=== PATIENT | female | born 1970 | race Caucasian/White ===

== ENCOUNTER → 2018-08-21 | Outpatient (CLI) | payer BC ==
--- NOTE | 2018-08-21 10:52 | MM ---
Reason for exam: follow-up at short interval from prior study. Last mammogram was performed 7 years and 3 months ago. History: Family history of breast cancer in paternal grandmother and breast cancer in paternal aunt at age 60. Took hormonal contraceptives for 18 years beginning at age 19. Physical Findings: Nurse did not find any significant physical abnormalities on exam. MG 3D Diag Mammo W/Cad LT CC and MLO view(s) were taken of the left breast. Prior study comparison: February 15, 2018, mammogram. May 18, 2011, [facility] DIGITAL LEFT BREAST MAMMOGRAM w/CAD. May 13, 2011, bilateral digital screening mammo w/CAD. The breast tissue is heterogeneously dense. This may lower the sensitivity of mammography. The superior left breast asymmetry at middle depth appears as fibroglandular tissue on 3D imaging. These results were verbally communicated with the patient and result sheet given to the patient on 08/21/18. ASSESSMENT: Benign, BI-RAD 2 RECOMMENDATION: Routine screening mammogram of both breasts in 5 months. Back on schedule for January 2019.
== END | disposition home or self-care (01) ==
LOC: RADMAMWWP 09:20
PROVIDERS: ATTEND Family Medicine
DX: R92.8 Other abnormal and inconclusive findings on diagnostic imaging of breast (principal)
CPT/HCPCS: 77061; 77065

== ENCOUNTER → 2019-02-26 | Outpatient (CLI) | payer BC ==
--- NOTE | 2019-02-28 10:04 | MM ---
Reason for exam: screening (asymptomatic). Last mammogram was performed 6 months ago. History: Family history of breast cancer in paternal grandmother and breast cancer in paternal aunt at age 60. Took hormonal contraceptives for 18 years beginning at age 19. Physical Findings: A clinical breast exam by your physician is recommended on an annual basis and results should be correlated with mammographic findings. MG Screening Mammo w CAD Bilateral CC and MLO view(s) were taken. Prior study comparison: August 21, 2018, left breast MG 3d diag mammo w/cad LT. February 15, 2018, mammogram. The breast tissue is extremely dense which could obscure a lesion on mammography. No significant changes when compared with prior studies. ASSESSMENT: Benign, BI-RAD 2 RECOMMENDATION: Routine screening mammogram of both breasts in 1 year.
== END | disposition home or self-care (01) ==
LOC: RADMAMWWP 16:57
PROVIDERS: ATTEND Family Medicine
DX: Z12.31 Encounter for screening mammogram for malignant neoplasm of breast (principal)
CPT/HCPCS: 77067

== ENCOUNTER → 2020-06-11 | Outpatient (CLI) | payer BC ==
--- NOTE | 2020-06-15 08:46 | MM ---
Reason for exam: screening (asymptomatic). Last mammogram was performed 1 year and 3 months ago. History: Family history of breast cancer in paternal grandmother and breast cancer in paternal aunt at age 60. Took hormonal contraceptives for 18 years beginning at age 19. Physical Findings: A clinical breast exam by your physician is recommended on an annual basis and results should be correlated with mammographic findings. MG 3D Screening Mammo W/Cad Bilateral CC and MLO view(s) were taken. Prior study comparison: February 26, 2019, bilateral MG screening mammo w CAD. August 21, 2018, left breast MG 3d diag mammo w/cad LT. The breast tissue is heterogeneously dense. This may lower the sensitivity of mammography. Benign appearing calcifications in the left breast. No significant changes when compared with prior studies. ASSESSMENT: Benign, BI-RAD 2 RECOMMENDATION: Routine screening mammogram of both breasts in 1 year.
== END | disposition home or self-care (01) ==
LOC: RADMAMWWP 13:52
PROVIDERS: ATTEND Family Medicine
DX: Z12.31 Encounter for screening mammogram for malignant neoplasm of breast (principal)
CPT/HCPCS: 77063; 77067

== ENCOUNTER → 2021-07-22 | Outpatient (CLI) | payer OTHER ==
--- NOTE | 2021-07-23 11:36 | MM ---
Reason for exam: screening (asymptomatic). Last mammogram was performed 1 year and 1 month ago. History: Family history of breast cancer in paternal grandmother and breast cancer in paternal aunt at age 60. Took hormonal contraceptives for 18 years beginning at age 19. Physical Findings: A clinical breast exam by your physician is recommended on an annual basis and results should be correlated with mammographic findings. MG 3D Screening Mammo W/Cad Bilateral CC and MLO view(s) were taken. Prior study comparison: June 11, 2020, bilateral MG 3d screening mammo w/cad. February 26, 2019, bilateral MG screening mammo w CAD. The breast tissue is heterogeneously dense. This may lower the sensitivity of mammography. There is no discrete abnormality. ASSESSMENT: Negative, BI-RAD 1 RECOMMENDATION: Routine screening mammogram of both breasts in 1 year.
== END | disposition home or self-care (01) ==
LOC: RADMAMWWP 12:34
PROVIDERS: ATTEND Family Medicine
DX: Z12.31 Encounter for screening mammogram for malignant neoplasm of breast (principal)
CPT/HCPCS: 77063; 77067

== ENCOUNTER → 2022-08-29 | Outpatient (CLI) | payer BC ==
--- NOTE | 2022-08-30 08:44 | MM ---
Reason for Exam: Screening (asymptomatic). Last mammogram was performed 1 year(s) and 1 month(s) ago. Patient History: Menarche at age 14. First Full-Term at age 26. Premenopausal. Hormonal Contraceptives, starting at age 19 for 18 years. Paternal grandmother had breast cancer. Paternal aunt had breast cancer, age 60. Paternal aunt had breast cancer. Risk Values: Madalyn 5 year model risk: 1.1%. NCI Lifetime model risk: 9.7%. Prior Study Comparison: 02/26/2019 Bilateral Screening Mammogram, [facility]. 06/11/2020 Bilateral Screening Mammogram, [facility]. 07/22/2021 Bilateral Screening Mammogram, [facility]. Tissue Density: The breast tissue is heterogeneously dense. This may lower the sensitivity of mammography. Findings: Analyzed By CAD. There is no suspicious group of microcalcifications or new suspicious mass in either breast. Stable benign-appearing calcifications in the left breast. No significant change from prior exams. Overall Assessment: Benign, BI-RAD 2 Management: Screening Mammogram of both breasts in 1 year. A clinical breast exam by your physician is recommended on an annual basis and results should be correlated with mammographic findings. Electronically signed and approved by: Kush Jay D.O.
== END | disposition home or self-care (01) ==
LOC: RADMAMWWP 11:20
PROVIDERS: ATTEND Family Medicine
DX: Z12.31 Encounter for screening mammogram for malignant neoplasm of breast (principal); Z80.3 Family history of malignant neoplasm of breast
CPT/HCPCS: 77063; 77067

== ENCOUNTER → 2023-09-05 | Outpatient (CLI) | payer BC ==
[2023-09-06 02:25] LABS: Basophils # (A) 0.03 X 10*3/uL (0.00-0.10); Basophils % (A) 0.5 %; Eosinophils # (A) 0.06 X 10*3/uL (0.04-0.35); Eosinophils % (A) 1.1 %; HGB 13.3 g/dL (12.0-15.0); Lymphocytes # (A) 1.34 X 10*3/uL (0.90-5.00); Lymphocytes % (A) 23.8 %; MCH 31.6 pg (27.0-32.0); MCHC 33.3 g/dL (32.0-37.0); Mean Platelet Volume 9.8 FL (9.5-12.2); Monocytes # (A) 0.36 X 10*3/uL (0.20-1.00); Monocytes % (A) 6.4 %; NRBC Per 100 WBC 0 X 10*3/uL (0.00-0.01); Neutrophils # (A) 3.81 X 10*3/uL (1.80-7.70); Neutrophils % (A) 67.8 %; Platelet Count 305 X 10*3/uL (140-440); RBC 4.21 X 10*6/uL (4.10-5.20); RDW 12.7 % (11.5-14.5); WBC 5.62 X 10*3/uL (4.50-10.00)
== END | disposition home or self-care (01) ==
LOC: LABPAT 16:10
PROVIDERS: ATTEND Obstetrics & Gynecology
DX: Z01.812 Encounter for preprocedural laboratory examination (principal); N92.1 Excessive and frequent menstruation with irregular cycle
CPT/HCPCS: 36415; 85025

== ENCOUNTER → 2023-09-12 | Outpatient (CLI) | payer BC ==
--- NOTE | 2023-09-17 14:28 | MM ---
Reason for Exam: Screening (asymptomatic). Last mammogram was performed 1 year(s) and 1 month(s) ago. Patient History: Menarche at age 14. First Full-Term at age 26. Premenopausal. Hormonal Contraceptives, starting at age 19 for 18 years. Paternal grandmother had breast cancer. Paternal aunt had breast cancer, age 60. Paternal aunt had breast cancer. Last menstrual period: 08/23/2023 Risk Values: Madalyn 5 year model risk: 1.2%. NCI Lifetime model risk: 9.6%. Prior Study Comparison: 06/11/2020 Bilateral Screening Mammogram, [facility]. 07/22/2021 Bilateral Screening Mammogram, [facility]. 08/29/2022 Bilateral MG 3D screening mammo w/cad, [facility]. Tissue Density: The breast tissue is heterogeneously dense. This may lower the sensitivity of mammography. Findings: Analyzed By CAD. The pattern is symmetrical. There are calcifications within the left breast. These are increasing from comparison. Additional workup with medication views are recommended. Overall Assessment: Incomplete: need additional imaging evaluation, BI-RAD 0 Management: Diagnostic Mammogram of the left breast. A negative mammogram report should not preclude additional follow up of suspicious palpable abnormalities. Patient should continue monthly self breast exam. A clinical breast exam by your physician is recommended on an annual basis and results should be correlated with mammographic findings. Electronically signed and approved by: Riaz Bobo D.O. Radiologis
== END | disposition home or self-care (01) ==
LOC: RADMAMWWP 14:44
PROVIDERS: ATTEND Family Medicine
DX: Z12.31 Encounter for screening mammogram for malignant neoplasm of breast (principal); Z80.3 Family history of malignant neoplasm of breast
CPT/HCPCS: 77063; 77067

== ENCOUNTER → 2023-09-20 | Outpatient (CLI) | payer BC, OTHER ==
--- NOTE | 2023-09-20 15:06 | MM ---
Reason for Exam: Additional evaluation requested from abnormal screening. Last screening mammogram was performed less than 1 month ago. Patient History: Menarche at age 14. First Full-Term at age 26. Premenopausal. Hormonal Contraceptives, starting at age 19 for 18 years. Paternal grandmother had breast cancer. Paternal aunt had breast cancer, age 60. Paternal aunt had breast cancer. Risk Values: Madalyn 5 year model risk: 1.2%. NCI Lifetime model risk: 9.6%. Prior Study Comparison: 07/22/2021 Bilateral Screening Mammogram, [facility]. 08/29/2022 Bilateral MG 3D screening mammo w/cad, [facility]. 09/12/2023 Bilateral MG 3D screening mammo w/cad, [facility]. Tissue Density: Left: The breast tissue is heterogeneously dense. This may lower the sensitivity of mammography. Findings: Analyzed By CAD. Grouped heterogeneous calcifications upper outer quadrant central left breast are indeterminate. One or 2 of these calcifications may layer and could reflect milk of calcium. The others do not clearly layer. Tissue sampling is recommended. Overall Assessment: Suspicious, BI-RAD 4 Management: Stereotactic Core Biopsy of the left breast. Results were given to the patient verbally at the time of exam. Electronically signed and approved by: Willis Pitt M.D. Radiologist
== END | disposition home or self-care (01) ==
LOC: RADMAMWWP 14:30
PROVIDERS: ATTEND Family Medicine
DX: R92.332 Mammographic heterogeneous density, left breast (principal); Z80.3 Family history of malignant neoplasm of breast
CPT/HCPCS: 77061; 77065

== ENCOUNTER → 2023-10-12 | Outpatient (CLI) | payer BC, OTHER ==
[2023-10-12 09:28] VITALS: RESP 16
== END ==
LOC: WWCWWP 07:16
PROVIDERS: ATTEND Surgery
DX: R92.8 Other abnormal and inconclusive findings on diagnostic imaging of breast (principal); F41.9 Anxiety disorder, unspecified; K91.0 Vomiting following gastrointestinal surgery; Z87.891 Personal history of nicotine dependence

== ENCOUNTER → 2023-10-12 | Day surgery (SDC) | payer BC, OTHER ==
--- NOTE | 2023-10-12 08:12 | P.GSHP ---
History of Present Illness H&P Date: 10/12/23 Chief Complaint: Microcalcifications of concern left breast Tootie is a 53-year-old female seen in consultation for Dr. Vital regarding an abnormal left breast mammogram. She underwent a bilateral mammogram on 09-12-2023. This revealed some calcifications of concern in the left breast and a diagnostic mammogram was recommended. This was performed on 09-20-2023. This revealed grouped heterogeneous calcifications upper outer quadrant for which tissue sampling was recommended. This was personally reviewed with Dr. Beavers from radiology. The patient does not have any lumps masses or nodules of concern in either breast. She has not had any surgery on her breast in the past. She has not had any trauma or infection in the breast. She is not complaining of any nipple discharge or skin changes. Caffeine: occasional nicotine: none chocolate: occasional BCP: used for about 35 years hormones: none Family History: maternal grandfather: colon cancer materna grandmother: colon cancer 2 paternal aunt: breast both from this; both diagnosed post menopausal paternal grandmother: breast cancer at 100 Hormonal History: menarch: 14 , breast fed: no, age at first : 26 menopause: ablation and tubaligation 2 weeks ago hormone: none, but used BCP Surgical History: tubaligation and ablation rohan lobato Medical History: none Social History: nicotine: stopped at 26, smoked occasional last year alcohol: occasional, monthly drugs: none - Constitutional Constitutional: Denies chills, Denies fever - EENT Eyes: denies blurred vision, denies pain Ears: deny: decreased hearing, tinnitus Ears, nose, mouth and throat: Denies headache, Denies sore throat - Breasts Breasts: bilateral: as per HPI - Cardiovascular Cardiovascular: Denies chest pain, Denies shortness of breath - Respiratory Respiratory: Denies cough, Denies 7 - Gastrointestinal Gastrointestinal: Denies abdominal pain, Denies diarrhea, Denies nausea, Denies vomiting - Genitourinary (Female) Genitourinary: Denies dysuria, Denies hematuria - Menstruation Menstruation: Reports as per HPI - Musculoskeletal Musculoskeletal: Denies myalgias - Integumentary Integumentary: Denies pruritus, Denies rash - Neurological Neurological: Denies numbness, Denies weakness - Psychiatric Psychiatric: Reports anxiety, Denies depression - Endocrine Endocrine: Denies fatigue, Denies weight change - Hematologic/Lymphatic Comment: none - Allergic/Immunologic Allergic/Immunologic: Reports seasonal allergies Past Medical History Additional Past Medical History / Comment(s): IBS? History of Any Multi-Drug Resistant Organisms: None Reported Past Surgical History: Tubal Ligation, Uterine Ablation Additional Past Surgical History / Comment(s): Abdominoplasty 1999 Past Anesthesia/Blood Transfusion Reactions: Postoperative Nausea & Vomiting (PONV) Past Psychological History: Anxiety Smoking Status: Former smoker Past Alcohol Use History: Occasional Additional Past Alcohol Use History / Comment(s): quit smoking 1996 Past Drug Use History: None Reported Medications and Allergies Home Medications Medication Instructions Recorded Confirmed Type Cetirizine HCl [Zyrtec] 10 mg PO DAILY 09/21/23 10/12/23 History Escitalopram [Lexapro] 20 mg PO DAILY 09/21/23 10/12/23 History Ferrous Sulfate [Feosol] 325 mg PO DAILY 09/21/23 10/12/23 History sulfaSALAzine [Azulfidine] 1,000 mg PO BID 09/21/23 10/12/23 History Allergies Allergy/AdvReac Type Severity Reaction Status Date / Time No Known Allergies Allergy Verified 10/12/23 07:29 Surgical - Exam Vital Signs Temp Pulse Resp BP 97.6 F 81 16 114/81 10/12/23 07:37 10/12/23 07:37 10/12/23 07:37 10/12/23 07:37 - General no distress - Eyes normal ocular movement - Neck trachea midline - Respiratory normal respiratory effort, clear to auscultation - Cardiovascular Rhythm: regular Heart Sounds: normal: S1, S2 - Abdomen Abdomen: soft, non tender, no guarding, no rigid, no rebound - Integumentary normal turgor - Neurologic no disoriented, no combative - Musculoskeletal normal gait - Psychiatric oriented to time, oriented to person, oriented to place, speech is normal, memory intact Breast Exam: BRA: 32B Inspection: Bilateral grade 2 ptosis Palpation: Right breast: Multi positional exam no dominant masses or nodules of concern Right axilla: Shotty adenopathy Left breast: Multi positional exam no dominant masses or nodules of concern Left axilla: No adenopathy of concern Results Mammogram personally reviewed with Dr. Beavers, calcifications noted in the upper outer quadrant left breast for which stereotactic core biopsy has been recommended Assessment and Plan Assessment: Impression: Microcalcifications of concern left breast Plan: Stereotactic core biopsy left breast Risk and benefits of the procedure discussed with the patient. Risk include but are not limited to bleeding, infection, reaction to the anesthetic. If the tissue acquisition were felt to be discordant further tissue acquisition may be necessary. The patient understands and wishes to proceed. CC: Dr. Acevedo
[2023-10-12 08:21] VITALS: BP 114/81; PULSE 81; RESP 16; TEMP 97.6
--- NOTE | 2023-10-13 08:28 | MM ---
Date of Procedure: 10/12/23 Preoperative Diagnosis: Microcalcifications of concern left breast upper outer quadrant Postoperative Diagnosis: Same Procedure(s) Performed: Stereotactic core biopsy left breast Anesthesia: local Surgeon: Emily Billings Pathology: other (Breast tissue/radiograph of specimen reveals microcalcifications of concern) Condition: stable Disposition: same day Indications for Procedure: Microcalcifications of concern left breast Operative Findings: Radiograph of specimen reveals microcalcifications of concern Description of Procedure: The patient is a 53-year-old white female who on a routine screening mammogram was noted to have microcalcifications of concern in the left breast in the upper outer quadrant region. The films were reviewed personally with radiology and the recommendation was for stereotactic core biopsy. Physical examination did not reveal any dominant masses or nodules of concern in either breast nor any axillary adenopathy of concern. Following discussion of the procedure informed consent was obtained from the patient. Risk and benefits of the procedure were discussed. Risk include but are not limited to bleeding, infection, reaction to the anesthetic. If tissue acquisition were insufficient then further tissue may be necessary to be obtained. The patient understood and wished to proceed. The patient was taken to the stereotactic core biopsy room. She was positioned in the upper right chair. A marine steamfitter film was obtained. Concern was identified. The area was targeted. The breast was prepped using chlorhexidine. 20 cc of 1% lidocaine were used to anesthetize the area of concern. A 12-gauge petite vacuum-assisted core rotating biopsy needle was driven to the correct coordinates. A prefire film was obtained. The needle appeared to be in the correct location. The needle was fired. A post fire film was obtained. The needle appeared to be in the correct location. 24 core biopsy specimens were obtained. Radiograph of the specimen revealed the microcalcifications of concern. A radiographic marking clip was left behind. The clip was noted to be in the correct location. The patient tolerated the procedure in stable condition. She will follow-up with Dr. Aguilar in 1 week. The specimen was sent to pathology. [facility]
== END ==
LOC: RADMAMWWP 07:17
PROVIDERS: ATTEND Surgery
DX: N60.12 Diffuse cystic mastopathy of left breast (principal); F41.9 Anxiety disorder, unspecified; N60.82 Other benign mammary dysplasias of left breast; N64.89 Other specified disorders of breast; Z79.899 Other long term (current) drug therapy
CPT/HCPCS: 88305; 19081; A4648; J2001

== ENCOUNTER → 2023-10-20 | Outpatient (CLI) | payer BC, OTHER ==
[2023-10-20 14:36] VITALS: BP 136/83; PULSE 80; RESP 15; TEMP 98.7
--- NOTE | 2023-10-20 14:37 | P.PN ---
Subjective Progress Note Date: 10/20/23 Principal diagnosis: radial scar Tootie is a 53 year old female status post left breast stero-biopsy. Her pathology showed radial scar/complex sclerosing lesion. She tolerated the procedure without difficulty. Objective - Vital Signs Vital signs: Intake & Output 10/19/23 10/20/23 10/20/23 18:59 06:59 18:59 Weight 55.792 kg - Constitutional General appearance: Present: cooperative - EENT Eyes: Present: EOMI - Neck Neck: Present: normal ROM - Respiratory Respiratory: bilateral: CTA - Cardiovascular Heart sounds: normal: S1, S2 - Integumentary Integumentary Comment(s): Mild ecchymosis at biopsy site Integumentary: Present: normal turgor - Psychiatric Psychiatric: Present: A&O x's 3 Assessment and Plan Assessment: Impression: Radial scar left breast Plan: Left breast needle localization lumpectomy with oncoplastic tissue transfer Benefits of the procedure discussed with the patient. Risk include but are not limited to bleeding, infection, reaction to the anesthetic. The patient understands and wishes to proceed. CC: Dr. Lopez
== END ==
LOC: WWCWWP 13:45
PROVIDERS: ATTEND Surgery
DX: N64.89 Other specified disorders of breast (principal)

== ENCOUNTER → 2024-12-02 | Outpatient (CLI) | payer OTHER ==
[2024-12-02 14:52] LABS: Basophils # (A) 0.03 X 10*3/uL (0.00-0.10); Basophils % (A) 0.9 %; Eosinophils # (A) 0.12 X 10*3/uL (0.04-0.35); Eosinophils % (A) 3.5 %; HCT 42.6 % (37.2-46.3); HGB 13.7 g/dL (12.0-15.0); Lymphocytes % (A) 34.7 %; MCH 31.1 pg (27.0-32.0); MCHC 32.2 g/dL (32.0-37.0); MCV 96.8 FL (80.0-97.0); Mean Platelet Volume 10.3 FL (9.5-12.2); Monocytes # (A) 0.35 X 10*3/uL (0.20-1.00); Monocytes % (A) 10.1 %; NRBC Per 100 WBC 0 X 10*3/uL (0.00-0.01); Neutrophils # (A) 1.75 X 10*3/uL (1.80-7.70); Neutrophils % (A) 50.5 %; Platelet Count 244 X 10*3/uL (140-440); RDW 12.4 % (11.5-14.5); WBC 3.46 X 10*3/uL (4.50-10.00)
[2024-12-02 15:14] LABS: Blood Urea Nitrogen 16.9 mg/dL (9.0-27.0); Chloride 105 mmol/L (96-109); Glucose 87 mg/dL (70-110); Potassium 4.6 mmol/L (3.5-5.5); Sodium 140 mmol/L (135-145)
== END | disposition home or self-care (01) ==
LOC: LABPAT 09:47
PROVIDERS: ATTEND Obstetrics & Gynecology
DX: Z01.818 Encounter for other preprocedural examination (principal); N92.1 Excessive and frequent menstruation with irregular cycle
CPT/HCPCS: 80051; 82565; 82947; 84520; 85025; 86850; 86900; 86901; 87086; 93005

== ENCOUNTER 2024-12-09 05:38 | Day surgery (SDC) | payer BC, MEDICARE ==
[2024-12-09] MEDS: DEXAMETHASONE SOD PHOSPHATE 4 MG/ML 1 ML VIAL IV ONE (06:42)
[2024-12-09] MEDS: ONDANSETRON 4 MG/2 ML VIAL IVP ONE (06:42)
[2024-12-09] MEDS: SCOPOLAMINE 1 MG/72 HR PATCH TRANSDERM ONE (06:42)
[2024-12-09] MEDS: LACTATED RINGERS 1,000 ML IV SCH ×2 (06:43→10:22)
[2024-12-09] MEDS: IV FLUID CONTINUATION 1,000 ML IV ONE (06:51)
[2024-12-09] MEDS: MIDAZOLAM 2 MG/2 ML VIAL IV PRN (06:57)
[2024-12-09] MEDS: fentaNYL (PF) 50 MCG/ML 2 ML AMP IVP STA (06:57)
--- NOTE | 2024-12-09 07:20 | P.ANPRN ---
Procedure Note - Anesthesia - Epidural/Spinal Spinal Time Out Performed: Yes Date of Procedure: 12/09/24 Procedure Start Time: 06:56 Procedure Stop Time: 07:03 Location of Patient: PreOp Indication: Acute Post-Operative Pain, Requested by Surgeon Sedation Type: Sedate with meaningful contact maintained Preparation: Sterile Prep Position: Sitting Needle Guage: 25 Blood Aspirated: No Pain Paresthesia on Injection Noted: No Events: Uneventful and Well Tolerated (Fentanyle 25 mcg + 300 mcg Duramorph injected intrathecally)
[2024-12-09] MEDS: VASOPRESSIN 20 UNIT/ML 1 ML VIAL IV ONE ×2 (07:29→07:56)
[2024-12-09] MEDS: BACITRACIN ZINC 500 UNIT/GM OINT 28.4 GM TUBE TOPICAL ONE ×2 (07:29→08:31)
[2024-12-09] MEDS ORDERED: ROCURONIUM 10 MG/ML (5 ML VIAL) IV ONE (07:30)
[2024-12-09] MEDS ORDERED: LIDOCAINE 1% INJ 10MG/ML (20 ML MDV) ONE (07:30)
[2024-12-09] MEDS ORDERED: diphenhydrAMINE 50 MG/ML 1 ML VIAL ONE (07:30)
[2024-12-09] MEDS ORDERED: ePHEDrine 50 MG/ML 1 ML VIAL ONE (07:30)
[2024-12-09] MEDS ORDERED: fentaNYL (PF) 50 MCG/ML 2 ML AMP ONE (07:30)
[2024-12-09] MEDS ORDERED: GLYCOPYRROLATE 0.2 MG/ML 2 ML VIAL ONE (07:30)
[2024-12-09] MEDS ORDERED: MIDAZOLAM 2 MG/2 ML VIAL ONE (07:30)
[2024-12-09] MEDS ORDERED: MORPHINE SULFATE (PF) 0.3 MG/0.3 ML SYR ONE (07:30)
[2024-12-09] MEDS ORDERED: PROPOFOL 10 MG/ML 20 ML VIAL IV ONE (07:30)
[2024-12-09] MEDS ORDERED: NEOSTIGMINE 1 MG/ML 10 ML VIAL ONE (07:30)
[2024-12-09] MEDS: ceFAZolin 2 GM in DEXTROSE 5% IN WATER 50 ML IVPB PRN (07:35)
[2024-12-09] MEDS: VASOPRESSIN 20 UNIT/ML 1 ML VIAL IM ONE (07:56)
[2024-12-09] MEDS: LACTATED RINGERS 1,000 ML IV ONE (08:37)
[2024-12-09] MEDS ORDERED: IBUPROFEN 600 MG TAB PO PRN (08:48)
[2024-12-09] MEDS ORDERED: SIMETHICONE 80 MG CHEWABLE PO PRN (08:48)
[2024-12-09] MEDS ORDERED: METOCLOPRAMIDE 5 MG/ML 2 ML VIAL IVP PRN (08:48)
[2024-12-09] MEDS ORDERED: diphenhydrAMINE 25 MG CAP PO PRN (08:48)
--- NOTE | 2024-12-09 08:57 | P.OP ---
Date of Procedure: 12/09/24 Preoperative Diagnosis: #1. Menometrorrhagia #2. Failed endometrial ablation Postoperative Diagnosis: Same Procedure(s) Performed: #1. Vaginal hysterectomy #2. Bilateral salpingectomy Anesthesia: MAT Surgeon: Harish Sheth Reject Opener #1: Cherry Hager Estimated Blood Loss (ml): 100 IV fluids (ml): 800 Urine output (ml): 150 Pathology: other (Uterus and bilateral fallopian tubes) Condition: stable Disposition: PACU Operative Findings: Preoperative and intraoperative pelvic examination confirmed grade 2+ uterine prolapse with no evidence of cystocele or rectocele. Intraoperatively, the bilateral ovaries were normal. There were Filshie clips bilaterally which were removed during the procedure. The fallopian tubes were removed without difficulty and sent with the specimen for pathological diagnoses. Description of Procedure: The patient was prepped and draped in usual fashion after general endotracheal anesthesia was administered by the anesthesiologist. A weighted speculum was placed and the bladder drained of approximately 70 mL of clear jhonatan urine. The cervix was grasped with a double-tooth tenaculum and the cervical vaginal mucosa infused with diluted vasopressin solution. The cervical vaginal mucosa was then incised sharply with a scalpel and reflected distally around the entire cervix. The posterior peritoneum was identified and incised sharply with the Hardy scissors, then tagged with a stitch of 2-0 Vicryl for later use. The short weighted speculum was replaced with a long weighted speculum. After adequate reflection of the vaginal mucosa circumferentially and primarily anteriorly, curved Yessi Mercedita clamps were utilized to clamp the uterosacral ligaments on each side. Each was cut and suture-ligated with a transfixion stitch of 0 Vicryl. Serial bites were taken off of the cardinal ligament from the cervix with curved Graciela Mercedita clamps. Each pedicle was cut and suture with a stitch of 0 Vicryl. After approximately 4 bites on each side, the uterus was inverted posteriorly and the anterior peritoneum was identified and already noted to be open. This allowed isolation of the utero-ovarian pedicle on each side which was clamped with curved Yessi Mercedita clamps, cut, and suture- ligated with a transfixion stitch of 0 Vicryl followed by a free tie of 0 Vicryl. The fallopian tubes with bilateral Filshie clips were identified easily. The ovaries were normal to inspection and palpation. A curved Yessi Mercedita clamp was utilized to separate the fallopian tube from the ovarian pedicle with each fallopian tube being added to the specimen to be sent to pathology. The tubal pedicles were sutured transfixed with a stitch of 0 Vicryl bilaterally. Hemostasis appeared to be excellent. All of the pedicles appeared to be dry. The long weighted speculum was replaced with a short weighted speculum and the previously placed stitch of 2-0 Vicryl was utilized to close the parietal peritoneum and a pursestring stitch. The uterosacral ligaments were then affixed to the contralateral uterosacral ligament and vaginal mucosa and a modified Sevilla's culdoplasty using 0 Vicryl. The intervening open vagin al mucosa was closed with interrupted [id number] stitches of 0 Vicryl anteriorly and posteriorly. Hemostasis again appeared to be excellent. A Chin catheter was then placed and noted to have clear jhonatan urine. The vagina was then packed with 1 inch iodophor gauze covered with bacitracin ointment. Estimated blood loss for the case was approximately 100 mL. There were no complications. All sponge, instrument, and needle counts were correct. The patient tolerated the procedure well and proceeded to the recovery room in stable condition.
[2024-12-09] MEDS: SENNOSIDES-DOCUSATE SODIUM 1 EACH TAB PO SCH (09:00)
[2024-12-09] MEDS: HYDROmorphone 0.5 MG/0.5 ML SYRINGE IVP PRN (09:15)
[2024-12-09] MEDS: FAMOTIDINE 20 MG/2 ML VIAL IV STA (09:59)
[2024-12-09] MEDS: diphenhydrAMINE 50 MG/ML 1 ML VIAL IVP PRN (17:58)
[2024-12-09] MEDS: ACETAMINOPHEN TAB 325 MG TAB PO PRN (19:39)
[2024-12-09] MEDS: ONDANSETRON 4 MG/2 ML VIAL IVP PRN (21:03)
[2024-12-09] MEDS: KETOROLAC 15 MG/ML 1 ML VIAL IVP PRN (23:30)
[2024-12-10 06:17] LABS: Basophils # (A) 0.03 10*3/uL (0.00-0.10); Basophils % (A) 0.4 %; Eosinophils # (A) 0.07 10*3/uL (0.04-0.35); HCT 35.5 % (37.2-46.3); HGB 11.6 g/dL (12.0-15.0); Lymphocytes # (A) 1.98 10*3/uL (0.90-5.00); MCH 31.7 pg (27.0-32.0); MCHC 32.7 g/dL (32.0-37.0); Mean Platelet Volume 10.1 fL (9.5-12.2); Monocytes # (A) 0.53 10*3/uL (0.20-1.00); Monocytes % (A) 7.2 %; Neutrophils % (A) 64.3 %; Platelet Count 198 10*3/uL (140-440); RBC 3.66 10*6/uL (4.10-5.20); RDW 12.3 % (11.5-14.5); WBC 7.32 10*3/uL (4.50-10.00)
--- NOTE | 2024-12-10 08:46 | P.DS ---
Providers Expected date of discharge: 12/10/24 Attending physician: Harish Sheth Primary care physician: Marli Lopez - Discharge Diagnosis(es) (1) History of endometrial ablation Current Visit: Yes Status: Acute (2) Menometrorrhagia Current Visit: Yes Status: Acute Hospital Course: Patient is a 54-year-old 3 para 3-0-0-3 who presented to the office having undergone endometrial ablation with tubal ligation last year. She has since that time continued to have monthly bleeding which is been manageable until recently at which time it became lifestyle altering. She had bleeding that became essentially daily and requested definitive therapy. Previous examination had deemed her a candidate for vaginal hysterectomy. She was therefore taken to the operating room where she underwent vaginal hysterectomy with bilateral salpingectomy in an uncomplicated fashion. Her postoperative course was unremarkable with vital signs remaining stable and her temperature was afebrile throughout. She was deemed stable for discharge on the morning of postoperative day #1 and was discharged home to follow-up in the office in 2 weeks for recheck in 6 weeks routinely. Discharge instructions included calling for any significantly increased bleeding, fever, pain, bladder or bowel concerns, or anything else that concerned her. She was additionally instructed to have nothing in the vagina for at least 6 weeks time to include intercourse and to abstain from any heavy lifting over the same period of time. She was lastly instructed to do no driving until off of all pain medications or 2 weeks time, whichever came first. She understood her instructions and agrees to follow-up as noted above. Discharge medications included only any normal home medications but she was provided with a prescription for oxycodone 5 mg, 1-2 p.o. every 6 hours as needed pain, #20 dispensed with no refills. She was otherwise to use [id number] analgesic pain medications as needed. Discharge hemoglobin and hematocrit were 11.6 and 35.5 respectively. Procedures: #1. Vaginal hysterectomy #2. Bilateral salpingectomy Patient Condition at Discharge: Stable Plan - Discharge Summary Discharge Rx Participant: Yes New Discharge Prescriptions: No Action Ferrous Sulfate [Feosol] 325 mg PO DAILY Cetirizine HCl [Zyrtec] 10 mg PO HS Selenium 200 mcg PO DAILY Ascorbic Acid [Vitamin C] 1 tab PO DAILY lysine HCL [l-Lysine] 500 mg PO DAILY sulfaSALAzine [Azulfidine] 1,000 mg PO BID Escitalopram [Lexapro] 20 mg PO DAILY Vitamin E (Dl,Tocopheryl Acet) [Vitamin E (400 Iu = 180 mg)] 1 tab PO DAILY Multivit with Calcium,Iron,Min [Women's Multivitamin] 1 tab PO DAILY Biotin 5,000 mcg PO DAILY Cholecalciferol (Vitamin D3) [Vitamin D3 (125 MCG = 5,000 IU)] 1 tab PO DAILY Discharge Medication List Cetirizine HCl [Zyrtec] 10 mg PO HS 09/21/23 [History] Escitalopram [Lexapro] 20 mg PO DAILY 09/21/23 [History] Ferrous Sulfate [Feosol] 325 mg PO DAILY 09/21/23 [History] sulfaSALAzine [Azulfidine] 1,000 mg PO BID 09/21/23 [History] Ascorbic Acid [Vitamin C] 1 tab PO DAILY 12/04/24 [History] Biotin 5,000 mcg PO DAILY 12/04/24 [History] Cholecalciferol (Vitamin D3) [Vitamin D3 (125 MCG = 5,000 IU)] 1 tab PO DAILY 12/04/24 [History] Multivit with Calcium,Iron,Min [Women's Multivitamin] 1 tab PO DAILY 12/04/24 [History] Selenium 200 mcg PO DAILY 12/04/24 [History] Vitamin E (Dl,Tocopheryl Acet) [Vitamin E (400 Iu = 180 mg)] 1 tab PO DAILY 12/04/24 [History] lysine HCL [l-Lysine] 500 mg PO DAILY 12/04/24 [History] Follow up Appointment(s)/Referral(s): Harish Sheth MD [STAFF PHYSICIAN] - 2 Weeks Discharge Disposition: HOME SELF-CARE
--- NOTE | 2024-12-10 08:48 | P.PN ---
Progress Note - Text Adequate analgesia. Patient had itching of whole body yesterday. With medical treatment, the itching was decreased and tolerable. No anesthetic complications.
[2024-12-10 09:13] VITALS: BP 92/53; PULSE 60; RESP 14; TEMP 97.6
== END 2024-12-10 12:00 | disposition home or self-care (01) ==
LOC: OR 05:38 → 4FBP 08:40 → OR 12-10 12:00
PROVIDERS: ATTEND Obstetrics & Gynecology
DX: D25.1 Intramural leiomyoma of uterus (principal); N92.1 Excessive and frequent menstruation with irregular cycle; N80.03 Adenomyosis of the uterus; N83.8 Other noninflammatory disorders of ovary, fallopian tube and broad ligament; Z98.890 Other specified postprocedural states; F17.200 Nicotine dependence, unspecified, uncomplicated; F41.9 Anxiety disorder, unspecified; D64.9 Anemia, unspecified; K58.9 Irritable bowel syndrome, unspecified
CPT/HCPCS: 81025; 85025; 88307; 58262; J2250; J1200 ×2; J1100; J2710; J0690; J2405; J2003; J2274; J3010; J3490; J1885 ×2; J2704; J1171; J1596